=== PATIENT | female | born 1945 | race Hispanic/Latino ===

== ENCOUNTER 2017-10-18 16:51 | Emergency (ER) | payer MEDICARE, OTHER ==
[2017-10-18 17:19] VITALS: RESP 18; TEMP 98
--- NOTE | 2017-10-18 18:17 | ED PDOC ---
Arrival/HPI - General Chief Complaint: Upper Extremity Problem/Injury Time Seen by Provider: 10/18/17 17:10 Historian: Patient - History of Present Illness Narrative History of Present Illness (Text): 10/18/17 18:15 72yo female with no past medical history who present with left wrist pain/ swelling s/p trauma this morning. States she had a mechanical fall this morning , tripped over ottoman seat, and landed on her left arm. States she came to Emergency department because of the worsening swelling and pain. Notes she didn' t take any analgesic because she don't like taking any medication. She admits to hitting the back of her head, but denies LOC, nausea, vomiting, visual changes, focal weakness, paresthesia, any other complaint. Past Medical History - Provider Review Nursing Documentation Reviewed: Yes - Infectious Disease Hx of Infectious Diseases: None - Reproductive Menopause: Yes - Cardiac Hx Cardiac Disorders: No - Neurological Hx Neurological Disorder: No - HEENT Hx HEENT Disorder: No - Hematological/Oncological Hx Blood Disorders: No - Psychiatric Hx Substance Use: No - Anesthesia Hx Anesthesia: No Family/Social History - Physician Review Nursing Documentation Reviewed: Yes Family/Social History: Unknown Family HX Smoking Status: Unknown If Ever Smoked Hx Alcohol Use: No Hx Substance Use: No Allergies/Home Meds Allergies/Adverse Reactions: Allergies No Known Allergies Allergy (Verified 10/18/17 17:13) Review of Systems - Physician Review All systems were reviewed & negative as marked: Yes - Review of Systems Constitutional: Normal Eyes: Normal ENT: Normal Respiratory: Normal Cardiovascular: Normal Gastrointestinal: Normal Genitourinary Female: Normal Musculoskeletal: Arthralgias (Left wrist pain) Skin: Normal Neurological: Normal Endocrine: Normal Hemo/Lymphatic: Normal Psychiatric: Normal Physical Exam Vital Signs Reviewed: Yes Vital Signs Temp Pulse Resp BP Pulse Ox 10/18/17 17:19 98.0 F 81 18 142/85 98 Temperature: Afebrile Blood Pressure: Normal Pulse: Regular Respiratory Rate: Normal Appearance: Positive for: Well-Appearing, Non-Toxic, Comfortable Pain Distress: None Mental Status: Positive for: Alert and Oriented X 3 - Systems Exam Head: Present: Atraumatic, Normocephalic Pupils: Present: PERRL Extroacular Muscles: Present: EOMI Conjunctiva: Present: Normal Mouth: Present: Moist Mucous Membranes Neck: Present: Normal Range of Motion Respiratory/Chest: Present: Clear to Auscultation, Good Air Exchange. No: Respiratory Distress, Accessory Muscle Use Cardiovascular: Present: Regular Rate and Rhythm, Normal S1, S2. No: Murmurs Abdomen: No: Tenderness, Distention, Peritoneal Signs Back: Present: Normal Inspection Upper Extremity: Present: NORMAL PULSES, Tenderness (From distal left forearm to the wrist), Swelling (Left wrist), Neurovascularly Intact, Deformity (LEft wrist). No: Cyanosis, Edema, Normal ROM (Limited secondary to pain), Erythema ( Ecchymosis over left wrist) Lower Extremity: Present: Normal Inspection. No: Edema Neurological: Present: GCS=15, CN II-XII Intact, Speech Normal Skin: Present: Warm, Dry, Normal Color. No: Rashes Psychiatric: Present: Alert, Oriented x 3, Normal Insight, Normal Concentration Medical Decision Making ED Course and Treatment: 10/18/17 18:32 PT present to Emergency department for stated history. She was NVI. Deformity was noted, high suspicious for fracture. she declined pain medication n Emergency department, sates she don't take any medication and don't want ANY MEDICATION. 10/18/17 19:25 PT later changed her mind and asked for pain medication and Percocet was given Left wrist xray - Comminuted minimally displaced distal radial fracture. Osteoarthritis Case was DW Dr. Rojas. He recommended Sugar tong splint and office f/u with him in the office. sugar tong splint was placed and pt remained NVI s/p. Arm placed on a sling. Pt strongly advised to f/u with Dr. Rojas. - RAD Interpretation Radiology Orders: 10/18/17 17:15 WRIST, LEFT 3 VIEWS [RAD] Stat 10/18/17 17:16 FOREARM LEFT [RAD] Stat - Medication Orders Current Medication Orders: Ondansetron HCl (Zofran Odt) 4 mg PO STAT STA Stop: 10/18/17 19:23 Last Admin: 10/18/17 19:24 Dose: 4 mg Discontinued Medications Oxycodone/Acetaminophen (Percocet 5/325 Mg Tab) 1 tab PO STAT STA Stop: 10/18/17 19:02 Last Admin: 10/18/17 19:22 Dose: 1 tab MAR Pain Assessment Document 10/18/17 19:22 EQ (Rec: 10/18/17 19:22 EQ [id number]) Pain Reassessment Is this a pain reassessment? No Sleep Is patient sleeping during reassessment? No Presence of Pain Presence of Pain Yes Disposition/Present on Arrival - Present on Arrival Any Indicators Present on Arrival: No History of DVT/PE: No History of Uncontrolled Diabetes: No Urinary Catheter: No History of Decub. Ulcer: No History Surgical Site Infection Following: None - Disposition Have Diagnosis and Disposition been Completed?: Yes Diagnosis: Wrist fracture Disposition: HOME/ ROUTINE Disposition Time: 19:20 Patient Plan: Discharge Patient Problems: Current Active Problems Problem Status Onset Wrist fracture Acute Condition: STABLE Discharge Instructions (ExitCare): Wrist Fracture (DC) Additional Instructions: Follow up with Orthopedist, Dr. Rojas Return to Emergency department for any new or worsening symptoms Prescriptions: traMADol [Ultram] 50 mg PO TID #9 tab Referrals: Anand Rojas MD [Staff Provider] - Follow up with primary Forms: [employer] ([place]ish)
--- NOTE | 2017-10-18 18:44 | RAD ---
PROCEDURE: Left Wrist Radiographs. HISTORY: wrist pain s/p trauma COMPARISON: None. FINDINGS: BONES: Comminuted minimally displaced distal radial fracture. No other fracture identified. JOINTS: Osteoarthritis at [facility] 1. Remaining joint spaces and articular surfaces are preserved. SOFT TISSUES: Normal. OTHER FINDINGS: None. IMPRESSION: Comminuted minimally displaced distal radial fracture. Osteoarthritis at [facility] 1.
--- NOTE | 2017-10-18 18:46 | RAD ---
PROCEDURE: Radiographs of the Left Forearm HISTORY: arm pain s/p trauma COMPARISON: None available. TECHNIQUE: Frontal and lateral views obtained. FINDINGS: BONES: Transverse nondisplaced fracture distal radius. No other fracture identified. No lytic or blastic osseous lesion. JOINT SPACES: Unremarkable. OTHER FINDINGS: None. IMPRESSION: Transverse nondisplaced distal radial fracture.
[2017-10-18] MEDS ORDERED: Oxycodone/Acetaminophen 5/325 mg Tab PO STA (19:01)
[2017-10-18 19:45] VITALS: BP 145/89; PULSE 72; O2SAT 99
== END 2017-10-18 19:45 | disposition home or self-care (01) ==
LOC: ED 16:51
DX: S52.502A Unspecified fracture of the lower end of left radius, initial encounter for closed fracture (principal); W01.0XXA Fall on same level from slipping, tripping and stumbling without subsequent striking against object, initial encounter; Y92.009 Unspecified place in unspecified non-institutional (private) residence as the place of occurrence of the external cause

== ENCOUNTER 2018-06-06 16:38 | Emergency (ER) | payer MEDICARE ==
[2018-06-06 17:01] VITALS: BP 107/73; PULSE 56; TEMP 97.7; O2SAT 96; BMI 18.3
--- NOTE | 2018-06-06 17:46 | ED PDOC ---
Arrival/HPI - General Chief Complaint: Eye Problem Time Seen by Provider: 06/06/18 16:50 Historian: Patient - History of Present Illness Narrative History of Present Illness (Text): 06/06/18 17:45 72-year-old female presents today with right eye redness. She denies headaches dizziness or weakness. She denies trauma or injury. She denies blurred vision. Denies neck or back pain. Patient denies being on any blood thinners. Patient states last night she noticed that she had erythema to the medial aspect of the right eye. Patient states the only thing that she could have done it is rubbed the right eye. Patient denies pain with eye movement. Past Medical History - Provider Review Nursing Documentation Reviewed: Yes - Travel History Have you recently traveled outside [place] w/in the past 3 mons?: No - Infectious Disease Hx of Infectious Diseases: None - Cardiac Hx Cardiac Disorders: No - Pulmonary Hx Respiratory Disorders: No - Neurological Hx Neurological Disorder: No - HEENT Hx HEENT Disorder: No - Renal Hx Renal Disorder: No - Endocrine/Metabolic Hx Endocrine Disorders: No - Hematological/Oncological Hx Blood Disorders: No - Integumentary Hx Dermatological Disorder: No - Musculoskeletal/Rheumatological Hx Musculoskeletal Disorders: No - Gastrointestinal Hx Gastrointestinal Disorders: No - Genitourinary/Gynecological Hx Genitourinary Disorders: No - Psychiatric Hx Psychophysiologic Disorder: No Hx Substance Use: No - Anesthesia Hx Anesthesia: No Family/Social History - Physician Review Nursing Documentation Reviewed: Yes Family/Social History: Unknown Family HX Smoking Status: Unknown If Ever Smoked Hx Alcohol Use: No Hx Substance Use: No Allergies/Home Meds Allergies/Adverse Reactions: Allergies No Known Allergies Allergy (Verified 06/06/18 17:05) Home Medications: Home Meds Medication Instructions Recorded Confirmed No Known Home Med 06/06/18 06/06/18 Review of Systems - Review of Systems Constitutional: absent: Fatigue, Fevers Eyes: absent: Vision Changes, Photophobia, Eye Pain ENT: absent: Sore Throat, Epistaxis, Sinus Congestion Respiratory: absent: SOB, Cough Cardiovascular: absent: Chest Pain, Palpitations Gastrointestinal: absent: Abdominal Pain, Nausea, Vomiting Genitourinary Female: absent: Dysuria Musculoskeletal: absent: Arthralgias Skin: absent: Rash, Pruritis Neurological: absent: Headache, Dizziness, Focal Weakness, Speech Changes, Facial Droop Psychiatric: absent: Anxiety, Depression Physical Exam Vital Signs Reviewed: Yes Vital Signs Temp Pulse BP Pulse Ox 06/06/18 17:00 97.7 F 56 L 107/73 96 Temperature: Afebrile Blood Pressure: Normal Pulse: Regular Respiratory Rate: Normal Appearance: Positive for: Well-Appearing, Non-Toxic, Comfortable Pain Distress: None Mental Status: Positive for: Alert and Oriented X 3 - Systems Exam Head: Present: Atraumatic, Other (no edema, no erythema, no ecchymosis. no periorbital tenderness or swelling. ) Pupils: Present: PERRL Extroacular Muscles: Present: EOMI. No: Entrapment Conjunctiva: No: Normal (there is a subconjunctival hemorrhage noted to the medial aspect of the right eye with slight spread to the inferior aspect. ) Mouth: Present: Moist Mucous Membranes Neck: Present: Normal Range of Motion Respiratory/Chest: Present: Clear to Auscultation Cardiovascular: Present: Regular Rate and Rhythm Neurological: Present: GCS=15, Speech Normal Skin: Present: Warm, Dry, Normal Color. No: Rashes Psychiatric: Present: Alert, Oriented x 3 Medical Decision Making ED Course and Treatment: 06/06/18 17:52 72yr old female with painless redness to right eye. no trauma or injury. pt found to have a Subconjunctival Hemorrhage in the right eye. Visual acuity within normal limits. I discussed findings in depth with the patient advised follow-up with the eye doctor within the next 2 days. I have advised immediate return if she develops any pain or blurred vision or headaches. Patient verbalizes understanding of discharge instructions and need for immediate followup. Impression: Subconjunctival hemorrhage follow up with the eye doctor within the next 2 days. return immediately if symptoms worsen,persist or if new symptoms develop; eye pain, blurred vision, headaches, dizziness, weakness or if any other concerning symptoms develop. Disposition/Present on Arrival - Present on Arrival Any Indicators Present on Arrival: No History of DVT/PE: No History of Uncontrolled Diabetes: No Urinary Catheter: No History of Decub. Ulcer: No History Surgical Site Infection Following: None - Disposition Have Diagnosis and Disposition been Completed?: Yes Diagnosis: Subconjunctival hemorrhage Disposition: HOME/ ROUTINE Disposition Time: 17:44 Patient Plan: Discharge Patient Problems: Current Active Problems Problem Status Onset Subconjunctival hemorrhage Acute Condition: GOOD Discharge Instructions (ExitCare): Subconjunctival Hemorrhage Additional Instructions: follow up with the eye doctor within the next 2 days. return immediately if symptoms worsen,persist or if new symptoms develop; eye pain, blurred vision, headaches, dizziness, weakness or if any other concerning symptoms develop. Referrals: Huber Pratt MD [Staff Provider] - Follow up with primary Brooke Holliday MD [Medical Doctor] - Follow up with primary [employer] [Outside] - Follow up with primary
[2018-06-06 18:41] VITALS: RESP 18
== END 2018-06-06 17:51 | disposition home or self-care (01) ==
LOC: ED 16:38
DX: H11.31 Conjunctival hemorrhage, right eye (principal)

== ENCOUNTER 2018-09-19 19:55 | Emergency (ER) | payer MEDICARE, OTHER ==
[2018-09-19 19:56] VITALS: BMI 18.3
[2018-09-19 21:00] VITALS: TEMP 98.3; O2SAT 100
--- NOTE | 2018-09-19 21:22 | ED PDOC ---
Arrival/HPI - General Chief Complaint: Upper Extremity Problem/Injury Time Seen by Provider: 09/19/18 21:02 Historian: Patient - History of Present Illness Narrative History of Present Illness (Text): 09/19/18 21:22 Shikha Ramos is a 73 year old female who presents to the ED complaining of right wrist pain status post fall. Patient states she tripped and fell on to her outstretched right hand while walking outside today at approximately 16:00 today. Patient now complaining of right wrist pain and swelling. Patient denies any weakness/numbness/tingling in the extremity, neck pain, headache, dizziness, or any other complaints. Symptom Onset: Gradual Symptom Course: Unchanged Activities at Onset: Light Context: Home Past Medical History - Provider Review Nursing Documentation Reviewed: Yes - Infectious Disease Hx of Infectious Diseases: None - Cardiac Hx Cardiac Disorders: No - Pulmonary Hx Respiratory Disorders: No - Neurological Hx Neurological Disorder: No - HEENT Hx HEENT Disorder: No - Renal Hx Renal Disorder: No - Endocrine/Metabolic Hx Endocrine Disorders: No - Hematological/Oncological Hx Blood Disorders: No - Integumentary Hx Dermatological Disorder: No - Musculoskeletal/Rheumatological Hx Musculoskeletal Disorders: No - Gastrointestinal Hx Gastrointestinal Disorders: No - Genitourinary/Gynecological Hx Genitourinary Disorders: No - Psychiatric Hx Psychophysiologic Disorder: No Hx Substance Use: No - Anesthesia Hx Anesthesia: No Hx Anesthesia Reactions: No Hx Malignant Hyperthermia: No Family/Social History - Physician Review Nursing Documentation Reviewed: Yes Family/Social History: Unknown Family HX Smoking Status: Never Smoked Hx Alcohol Use: No Hx Substance Use: No Allergies/Home Meds Allergies/Adverse Reactions: Allergies No Known Allergies Allergy (Verified 06/06/18 17:05) Home Medications: Home Meds Medication Instructions Recorded Confirmed No Known Home Med 06/06/18 09/19/18 Review of Systems - Physician Review All systems were reviewed & negative as marked: Yes - Review of Systems Constitutional: Normal. absent: Fevers Eyes: Normal ENT: Normal Respiratory: Normal. absent: SOB, Cough Cardiovascular: Normal. absent: Chest Pain Gastrointestinal: Normal. absent: Abdominal Pain, Diarrhea, Nausea, Vomiting Genitourinary Female: Normal. absent: Dysuria, Frequency, Hematuria, Urine Output Changes Musculoskeletal: Arthralgias (+right wrist pain). absent: Back Pain, Neck Pain Skin: Normal. absent: Rash Neurological: Normal. absent: Headache, Dizziness Endocrine: Normal Hemo/Lymphatic: Normal Psychiatric: Normal Physical Exam Vital Signs Reviewed: Yes Vital Signs Temp Pulse Resp BP Pulse Ox 09/19/18 20:59 98.3 F 58 L 18 119/76 100 Temperature: Afebrile Blood Pressure: Normal Pulse: Regular Respiratory Rate: Normal Appearance: Positive for: Well-Appearing, Non-Toxic, Comfortable Pain Distress: None Mental Status: Positive for: Alert and Oriented X 3 - Systems Exam Head: Present: Atraumatic, Normocephalic Pupils: Present: PERRL Extroacular Muscles: Present: EOMI Conjunctiva: Present: Normal Mouth: Present: Moist Mucous Membranes Neck: Present: Normal Range of Motion Respiratory/Chest: Present: Clear to Auscultation, Good Air Exchange. No: Respiratory Distress, Accessory Muscle Use Cardiovascular: Present: Regular Rate and Rhythm, Normal S1, S2. No: Murmurs Upper Extremity: Present: Swelling (Swelling to right wrist). No: Cyanosis, Edema Lower Extremity: Present: Normal Inspection. No: Edema Neurological: Present: GCS=15, CN II-XII Intact, Speech Normal Skin: Present: Warm, Dry, Normal Color. No: Rashes Psychiatric: Present: Alert, Oriented x 3, Normal Insight, Normal Concentration Medical Decision Making ED Course and Treatment: 09/19/18 21:22 Impression: 73 year old female complaining of right wrist pain and swelling. Plan: -- XR Left Hand -- XR Right Wrist -- Reassess and disposition Prior Visits: Notes and results from previous visits were reviewed. Progress Notes: 09/19/18 22:41 Reviewed radiology, XR Left Hand negative for any acute processes. XR Right Wrist shows an impacted distal right radial fracture. - RAD Interpretation [employer]: ED Physician - Scribe Statement The provider has reviewed the documentation as recorded by the Melodie Jimenez Provider Scribe Attestation: All medical record entries made by the Scribe were at my direction and personally dictated by me. I have reviewed the chart and agree that the record accurately reflects my personal performance of the history, physical exam, medical decision making, and the department course for this patient. I have also personally directed, reviewed, and agree with the discharge instructions and disposition. Disposition/Present on Arrival - Present on Arrival Any Indicators Present on Arrival: No History of DVT/PE: No History of Uncontrolled Diabetes: No Urinary Catheter: No History of Decub. Ulcer: No History Surgical Site Infection Following: None - Disposition Have Diagnosis and Disposition been Completed?: Yes Diagnosis: Distal radial fracture Disposition: HOME/ ROUTINE Disposition Time: 22:55 Condition: FAIR Discharge Instructions (ExitCare): Radius Fracture Additional Instructions: call dr thornton in am Referrals: Steve Thornton MD [Primary Care Provider] - Follow up with primary Forms: [employer] ([place])
[2018-09-19 23:00] VITALS: BP 126/78; PULSE 72; RESP 14
--- NOTE | 2018-09-20 10:37 | RAD ---
Date of service: 09/19/2018 PROCEDURE: Right Wrist Radiographs. HISTORY: fall COMPARISON: None. TECHNIQUE: Three views obtained. FINDINGS: BONES: Comminuted slightly impacted distal radial metaphyseal to epiphyseal fracture suggested. Ulnar-sided radiocarpal joint intra-articular extension suspect. [place] volar angulated. First carpal metacarpal hypertrophic arthrosis prominent spurring between the 1st and 2nd metacarpal bases. First metacarpal phalangeal joint arthrosis. JOINTS: As above SOFT TISSUES: Swelling elbow level OTHER FINDINGS: None. IMPRESSION: Comminuted slightly impacted distal radial fracture with radiocarpal intra-articular extension suspect. Slight volar apical angulation. Comments: Study marked for PA review .
--- NOTE | 2018-09-20 15:16 | ED PDOC ---
ED Additional Note - Physician Additional Note Physician Additional Note: FINDINGS: BONES: Comminuted slightly impacted distal radial metaphyseal to epiphyseal fracture suggested. Ulnar-sided radiocarpal joint intra-articular extension suspect. [place] volar angulated. First carpal metacarpal hypertrophic arthrosis prominent spurring between the 1st and 2nd metacarpal bases. First metacarpal phalangeal joint arthrosis. JOINTS: As above SOFT TISSUES: Swelling elbow level OTHER FINDINGS: None. IMPRESSION: Comminuted slightly impacted distal radial fracture with radiocarpal intra- articular extension suspect. Slight volar apical angulation. called patient and left message to call back regarding xray results.
== END 2018-09-19 22:57 | disposition home or self-care (01) ==
LOC: ED 19:55
DX: S52.501A Unspecified fracture of the lower end of right radius, initial encounter for closed fracture (principal); W01.0XXA Fall on same level from slipping, tripping and stumbling without subsequent striking against object, initial encounter; Y93.01 Activity, walking, marching and hiking; Y92.89 Other specified places as the place of occurrence of the external cause

== ENCOUNTER 2018-09-29 00:05 | Emergency (ER) | payer MEDICARE, OTHER ==
[2018-09-29 00:06] VITALS: BMI 18.3
[2018-09-29 00:40] VITALS: BP 127/70; PULSE 60; RESP 16; TEMP 97.6; O2SAT 98
--- NOTE | 2018-09-29 01:55 | ED PDOC ---
Arrival/HPI - General Chief Complaint: Upper Extremity Problem/Injury Time Seen by Provider: 09/29/18 01:04 Historian: Patient - History of Present Illness Narrative History of Present Illness (Text): 09/29/18 01:52 A 73 year old female presents to the emergency department with a complaint of right wrist discomfort. Patient had been diagnosed with wrist fracture 10 days prior. Was seen in the emergency department and discharged for follow up with her orthopedist. As per the patient, another splint was placed on the patient because of swelling to the area due to tightness of the original splint. Patient complains of discomfort to the wrist area. Feels that the splint is too tight again. She denies any history of recurrent trauma or any other complaints. Time/Duration: Other (Today) Symptom Onset: Sudden Symptom Course: Unchanged Activities at Onset: Rest, Light Context: Home Past Medical History - Provider Review Nursing Documentation Reviewed: Yes - Infectious Disease Hx of Infectious Diseases: None - Cardiac Hx Cardiac Disorders: No - Pulmonary Hx Respiratory Disorders: No - Neurological Hx Neurological Disorder: No - HEENT Hx HEENT Disorder: No - Renal Hx Renal Disorder: No - Endocrine/Metabolic Hx Endocrine Disorders: No - Hematological/Oncological Hx Blood Disorders: No - Integumentary Hx Dermatological Disorder: No - Musculoskeletal/Rheumatological Hx Musculoskeletal Disorders: No - Gastrointestinal Hx Gastrointestinal Disorders: No - Genitourinary/Gynecological Hx Genitourinary Disorders: No - Psychiatric Hx Psychophysiologic Disorder: No Hx Substance Use: No - Anesthesia Hx Anesthesia: No Hx Anesthesia Reactions: No Hx Malignant Hyperthermia: No Family/Social History - Physician Review Nursing Documentation Reviewed: Yes Family/Social History: No Known Family HX Smoking Status: Never Smoked Hx Alcohol Use: No Hx Substance Use: No Allergies/Home Meds Allergies/Adverse Reactions: Allergies No Known Allergies Allergy (Verified 09/29/18 00:36) Review of Systems - Physician Review All systems were reviewed & negative as marked: Yes - Review of Systems Musculoskeletal: Normal (right wrist discomfort) Physical Exam Vital Signs Reviewed: Yes Vital Signs Temp Pulse Resp BP Pulse Ox 09/29/18 00:38 97.6 F 60 16 127/70 98 Temperature: Afebrile Blood Pressure: Normal Pulse: Regular Respiratory Rate: Normal Appearance: Positive for: Well-Appearing, Non-Toxic, Comfortable Pain Distress: None Mental Status: Positive for: Alert and Oriented X 3 - Systems Exam Upper Extremity: Present: Neurovascularly Intact, Capillary Refill < 2s. No: Cyanosis, Edema, Swelling, Deformity Medical Decision Making ED Course and Treatment: 09/29/18 01:56 Impression: A 73 year old female presents to the emergency department with a complaint of right wrist discomfort. Plan: -- Ultram -- Reassess and disposition Prior Visits: Notes and results from previous visits were reviewed. Progress Notes: Patient has a splint reapplied. Pain medication given. Patient is in no acute distress. I have discussed the results and plan with the patient, who expresses understanding. Patient in agreement with plan to be discharged home. Patient is stable for discharge. Patient was instructed to follow up with physician or return if symptoms worsen or new concerning symptoms arise. - Medication Orders Current Medication Orders: Discontinued Medications Tramadol HCl (Ultram) 50 mg PO STAT STA Stop: 09/29/18 01:22 - Scribe Statement The provider has reviewed the documentation as recorded by the Scribe Essie Robles Provider Scribe Attestation: All medical record entries made by the Scribe were at my direction and personally dictated by me. I have reviewed the chart and agree that the record accurately reflects my personal performance of the history, physical exam, medical decision making, and the department course for this patient. I have also personally directed, reviewed, and agree with the discharge instructions and disposition. Disposition/Present on Arrival - Present on Arrival Any Indicators Present on Arrival: No History of DVT/PE: No History of Uncontrolled Diabetes: No Urinary Catheter: No History of Decub. Ulcer: No History Surgical Site Infection Following: None - Disposition Have Diagnosis and Disposition been Completed?: Yes Diagnosis: Wrist pain, chronic, History of wrist fracture Disposition: HOME/ ROUTINE Disposition Time: 03:11 Patient Plan: Discharge Patient Problems: Current Active Problems Problem Status Onset History of wrist fracture Acute Wrist pain, chronic Acute Condition: GOOD Additional Instructions: Maintain splint/sling/take meds as prescribed/follow up with your orthopedist this week Prescriptions: Tramadol HCl [Ultram] 50 mg PO Q6 PRN #12 tab PRN Reason: Pain, Moderate (4-7) Forms: [email or web address] ([place])
== END 2018-09-29 03:21 | disposition home or self-care (01) ==
LOC: ED 00:05
DX: M25.531 Pain in right wrist (principal); G89.29 Other chronic pain; Z87.81 Personal history of (healed) traumatic fracture